=== PATIENT | female | born 1985 | race Asian ===

== ENCOUNTER 2018-08-12 05:55 | Day surgery (SDC) | payer BC ==
[2018-08-11 08:56] LABS: BASOPHILS % (AUTO) 0.7 % (0.0-5.0); EOSINOPHILS % (AUTO) 2.2 % (0.0-8.0); MEAN CORPUSCULAR HEMOGLOBIN 28.5 pg (27.0-33.0); MEAN CORPUSCULAR HGB CONC 32.7 g/dL (32.0-36.0); MEAN CORPUSCULAR VOLUME 87.2 fL (79-99); MONOCYTES % (AUTO) 5.4 % (3.0-13.0); NEUTROPHILS % (AUTO) 54.7 % (40.0-77.0); NUCLEATED RED BLOOD CELLS 0.1 % (0.0-0.19); PLATELET COUNT (AUTO) 192 K/uL (130-400); RED BLOOD CELL COUNT(AUTO) 4.24 MIL/uL (4.00-5.50); RED CELL DISTRIBUTION WIDTH 13.5 % (11.0-15.5); WHITE BLOOD COUNT (AUTO) 5.4 K/uL (4.8-10.8)
[2018-08-11 09:02] VITALS: BP 99/59
[2018-08-11 09:17] LABS: CREATININE 0.6 mg/dL (0.5-1.5); POTASSIUM 3.7 mmol/L (3.5-5.1)
[2018-08-11] MEDS: CEFAZOLIN SODIUM 1 GM VIAL IVP SCH (12:00)
[~2018-08-12] VITALS: Ht 149.9 cm; Wt 60.3 kg
[2018-08-12] VITALS (15 sets, daily range): BP systolic 102–115; BP diastolic 67–78
[~2018-08-12 05:55] MED LIST: ASPI-555 PO; ATOR10TA69 PO; INSU100C6 SQ; LACTATED RINGERS 1000ML 1,000 ML IV SCH; LEVO75TA10 PO; TAMO20TA4 PO
[2018-08-12] MEDS ORDERED: SODIUM CHLORIDE 0.9% 1000ML 1,000 ML IV ONE (06:26)
[2018-08-12] MEDS: CALDOLOR 800MG+NS 250ML 250 ML IV SCH ×2 (06:50→06:55)
[2018-08-12] MEDS ORDERED: PROPOFOL 10 MG/ML 20ML VIAL IV ONE (07:03)
[2018-08-12] MEDS ORDERED: LIDOCAINE PF 2% 5ML ABBOJECT ONE (07:03)
[2018-08-12] MEDS ORDERED: FENTANYL CITRATE PF 50 MCG/1 ML 2ML VIAL ONE (07:03)
[2018-08-12] MEDS: CEFAZOLIN SODIUM 1 GM VIAL IVP SCH (07:10)
[2018-08-12] MEDS ORDERED: ONDANSETRON HCL 4 MG/2 ML VIAL ONE (07:21)
[2018-08-12] MEDS ORDERED: DEXAMETHASONE SOD PHOSPHATE 10MG/ML 1ML VIAL ONE (07:44)
== END 2018-08-12 09:30 | disposition home or self-care (01) ==
LOC: DAH 05:55
PROVIDERS: ATTEND Obstetrics & Gynecology
DX: D26.1 Other benign neoplasm of corpus uteri (principal); C50.919 Malignant neoplasm of unspecified site of unspecified female breast; E11.9 Type 2 diabetes mellitus without complications; E03.9 Hypothyroidism, unspecified; Z98.890 Other specified postprocedural states; Z90.10 Acquired absence of unspecified breast and nipple; Z83.3 Family history of diabetes mellitus; Z79.4 Long term (current) use of insulin; Z79.899 Other long term (current) drug therapy
CPT/HCPCS: 36415; 58558; 80048; 82948 ×2; 84702; 85025; 86850; 86900; 86901; 88305; A4351; A4355; A4510; A4600; J0690; J1100; J1741; J2001; J2405; J2704; J3010; J7030 ×2; J7120